=== PATIENT | male | born 2000 | race Two or more races ===

== ENCOUNTER 2019-02-05 07:41 | Emergency (ER) | payer SELFPAY ==
[~2019-02-05] VITALS: Ht 185.4 cm; Wt 117.9 kg
[~2019-02-05 07:41] MED LIST: ALBU2.5V8 INH
[2019-02-05 07:52] VITALS: BP 148/94
[2019-02-05] MEDS ORDERED: IV NORMAL SALINE 1,000ML 1,000 ML IV SCH (08:08)
--- NOTE | 2019-02-05 08:12 | PHYS DOC ---
Past History Past Medical History: No Pertinent History Past Surgical History: Other Additional Past Surgical Histo: PREVIOUS HAND AND FOOT SURGERY Smoking: Non-smoker Alcohol Use: None Drug Use: None Adult General Chief Complaint Chief Complaint: ABDOMINAL PAIN HPI HPI Patient is a 18-year-old male presents with left sided upper and lower abdominal pain. This started 3-4 days ago. There is nausea with this, no vomiting. No diarrhea. No blood in the stool. No fevers. No recent travel. No sick family contacts. No relief with acetaminophen. Slightly worse with movement. The discomfort has been waxing and waning. Pain is moderate in intensity. There is no radiation into the back or to the groin.[] Review of Systems Review of Systems Constitutional: Denies fever or chills [] Eyes: Denies change in visual acuity, redness, or eye pain [] HENT: Denies nasal congestion or sore throat [] Respiratory: Denies cough or shortness of breath [] Cardiovascular: No chest pain or palpitations[] GI: See history of present illness[] : Denies dysuria or hematuria [] Musculoskeletal: Denies back pain or joint pain [] Integument: Denies rash or skin lesions [] Neurologic: Denies headache, focal weakness or sensory changes [] Endocrine: Denies polyuria or polydipsia [] All other systems were reviewed and found to be within normal limits, except as documented in this note. Allergies Allergies Allergies Coded Allergies Type Severity Reaction Last Updated Verified No Known Drug Allergies 12/18/13 No Physical Exam Physical Exam Constitutional: Well developed, well nourished, no acute distress, non-toxic appearance. [] HENT: Normocephalic, atraumatic, bilateral external ears normal, oropharynx moist, no oral exudates, nose normal. [] Eyes: PERRLA, EOMI, conjunctiva normal, no discharge. [] Neck: Normal range of motion, no tenderness, supple, no stridor. [] Cardiovascular:Heart rate regular rhythm, no murmur [] Lungs & Thorax: Bilateral breath sounds clear to auscultation [] Abdomen: Bowel sounds normal, soft, left-sided abdominal tenderness, both upper and lower quadrants, no rebound, no guarding, no rigidity, no masses, no pulsatile masses. [] Skin: Warm, dry, no erythema, no rash. [] Back: No tenderness, no CVA tenderness. [] Extremities: No tenderness, no cyanosis, no clubbing, ROM intact, no edema. [] Neurologic: Alert and oriented X 3, normal motor function, normal sensory function, no focal deficits noted. [] Psychologic: Affect normal, judgement normal, mood normal. [] Current Patient Data Vital Signs Vital Signs Date Time Temp Pulse Resp B/P (MAP) Pulse Ox O2 Delivery O2 Flow Rate FiO2 02/05/19 07:52 98.4 99 Room Air EKG EKG [] Radiology/Procedures Radiology/Procedures PROCEDURE: CT ABD PELV W/ IV CONTRST ONLY Examination: CT of the abdomen pelvis with IV contrast HISTORY: History of left-sided abdominal pain COMPARISON: None available TECHNIQUE: Axial CT images of the abdomen pelvis were performed with IV contrast. Coronal and sagittal reformats are performed. Exposure: One or more of the following individualized dose reduction techniques were utilized for this examination: 1. Automated exposure control 2. Adjustment of the mA and/or kV according to patient size 3. Use of iterative reconstruction technique FINDINGS: Minimal 3 mm nodule identified in the right lung base. No evidence of pleural effusion or pneumothorax. No evidence of free air identified in the abdomen. Mild decreased attenuation noted identified in the liver likely hepatic steatosis. The visualized spleen, adrenals grossly appears unremarkable. The gallbladder is mildly distended. The stomach is mildly distended. The visualized pancreas grossly appears unremarkable. The small bowel is nondilated. The appendix is normal. There is mild thickened appearance of the wall of the descending colon, sigmoid colon with minimal questionable surrounding fat stranding could be nondistention or mild colitis. Urinary bladder is mildly distended. The bilateral kidneys enhance symmetrically. The caliber of the aorta grossly appears unremarkable. No evidence of lytic bony destructive lesion. IMPRESSION: 1. Mild thickened appearance of the wall of the descending colon and sigmoid colon with minimal surrounding fat stranding could be due to nondistention or mild colitis. 2. Mild hepatic steatosis. 3. Questionable 3 mm nodule right lung base.[] Course & Med Decision Making Course & Med Decision Making Pertinent Labs and Imaging studies reviewed. (See chart for details) ED course: Patient arrived, was placed in bed, and tolerated exam well. He was transported to and from [place] without any complications. He had IV access established, was given IV fluids as well as pain medicine and antiemetics which improved his nausea and partially improved his pain. After the return of the laboratory and imaging findings, these were discussed with the patient who voiced understanding. His initial dose of antibiotics was administered. He was discharged in improved condition with all questions answered. Medical decision making: Patient appears to have colitis. There is no family history of ulcerative colitis so we'll treat this as an infectious etiology. No evidence of oral intake intolerance. No evidence of significant electrolyte abnormality, pancreatitis, obstruction, appendicitis, or perforation.[] Dragon Disclaimer Dragon Disclaimer This electronic medical record was generated, in whole or in part, using a voice recognition dictation system. Departure Departure: Impression: Primary Impression: Colitis Disposition: HOME, SELF-CARE Condition: IMPROVED Referrals: [facility] (PCP) Patient Instructions: Colitis Additional Instructions: Follow-up with your regular doctor in 2 days. If you do not have a regular doctor list of local clinics will be provided for you. Take the medication as prescribed. Return to the ER if worsening pain, unable to tolerate liquids, or any other concerns. Scripts Metronidazole (METRONIDAZOLE) 500 Mg Tablet 500 MG PO QID for colitis for 10 Days, #40 TAB Prov: MARIANO SIMS DO 02/05/19 Tramadol Hcl (TRAMADOL HCL) 50 Mg Tablet 50 MG PO PRN Q6HRS PRN for PAIN, #20 TAB Prov: MARIANO SIMS DO 02/05/19 Metoclopramide Hcl (REGLAN) 10 Mg Tablet 10 MG PO QID for nausea and vomiting, #30 TAB Prov: MARIANO SIMS DO 02/05/19 Meloxicam (MELOXICAM) 7.5 Mg Tablet 7.5 MG PO DAILY for PAIN, #20 TAB Prov: MARIANO SIMS DO 02/05/19 Sulfamethoxazole/Trimethoprim (BACTRIM DS TABLET) 1 Each Tablet 1 TAB PO BID for colitis, #20 TAB Prov: MARIANO SIMS DO 02/05/19 MARIANO SIMS DO Feb 05, 2019 08:12
[2019-02-05] MEDS ORDERED: ONDANSETRON PF 4 MG/2 ML VIAL. IV ONE (08:30)
[2019-02-05] MEDS ORDERED: IOHEXOL 300 MG/ML 75 ML VIAL. IV ONE (08:30)
[2019-02-05] MEDS ORDERED: KETOROLAC 30 MG/ML VIAL. IV ONE (08:30)
[2019-02-05 08:34] LABS: BASO % 0 % (0-3); EOS % 1 % (0-3); HEMATOCRIT 48.4 % (39.0-53.0); HEMOGLOBIN 16.4 g/dL (13.0-17.5); LYMPH # 1.7 x10^3/uL (1.0-4.8); LYMPH % 32 % (24-48); MEAN CORPUSCULAR HEMOGLOBIN 29 pg (25-35); MEAN CORPUSCULAR HGB CONC 34 g/dL (31-37); MEAN CORPUSCULAR VOLUME 87 fL (79-100); MONO # 0.5 x10^3/uL (0.0-1.1); MONO % 8 % (0-9); NEUT # 3.2 x10^3uL (1.8-7.7); NEUT % 59 % (31-73); PLATELET COUNT 295 x10^3/uL (140-400); RED BLOOD COUNT 5.57 x10^6/uL (4.30-5.70); WHITE BLOOD COUNT 5.5 x10^3/uL (4.0-11.0)
[2019-02-05 08:56] LABS: ALBUMIN 4.3 g/dL (3.4-5.0); ALBUMIN/GLOBULIN RATIO 1.2 (1.0-1.7); CALCIUM 9.6 mg/dL (8.5-10.1); CREATININE 1.1 mg/dL (0.7-1.3); GFR 86.2; POTASSIUM 3.9 mmol/L (3.5-5.1); TOTAL PROTEIN 7.8 g/dL (6.4-8.2)
--- NOTE | 2019-02-05 08:59 | RAD ---
Examination: CT of the abdomen pelvis with IV contrast HISTORY: History of left-sided abdominal pain COMPARISON: None available TECHNIQUE: Axial CT images of the abdomen pelvis were performed with IV contrast. Coronal and sagittal reformats are performed. Exposure: One or more of the following individualized dose reduction techniques were utilized for this examination: 1. Automated exposure control 2. Adjustment of the mA and/or kV according to patient size 3. Use of iterative reconstruction technique FINDINGS: Minimal 3 mm nodule identified in the right lung base. No evidence of pleural effusion or pneumothorax. No evidence of free air identified in the abdomen. Mild decreased attenuation noted identified in the liver likely hepatic steatosis. The visualized spleen, adrenals grossly appears unremarkable. The gallbladder is mildly distended. The stomach is mildly distended. The visualized pancreas grossly appears unremarkable. The small bowel is nondilated. The appendix is normal. There is mild thickened appearance of the wall of the descending colon, sigmoid colon with minimal questionable surrounding fat stranding could be nondistention or mild colitis. Urinary bladder is mildly distended. The bilateral kidneys enhance symmetrically. The caliber of the aorta grossly appears unremarkable. No evidence of lytic bony destructive lesion. IMPRESSION: 1. Mild thickened appearance of the wall of the descending colon and sigmoid colon with minimal surrounding fat stranding could be due to nondistention or mild colitis. 2. Mild hepatic steatosis. 3. Questionable 3 mm nodule right lung base. Electronically signed by: Omar Sher MD (02/05/2019 8:56 AM) [place] [id number]
[2019-02-05] MEDS ORDERED: METR-34 PO (09:39)
[2019-02-05] MEDS ORDERED: METO10TA81 PO (09:39)
[2019-02-05] MEDS ORDERED: MELO7.5T29 PO (09:39)
[2019-02-05] MEDS ORDERED: TRAM50TA PO (09:39)
[2019-02-05] MEDS ORDERED: SULF1TAB24 PO (09:39)
[2019-02-05] MEDS ORDERED: SMZ/TMP 800/160MG TABLET. PO ONE (09:45)
[2019-02-05] MEDS ORDERED: metroNIDAZOLE 500 MG TABLET PO ONE (09:45)
[2019-02-05] MEDS ORDERED: traMADol 50 MG TABLET PO ONE (09:45)
[2019-02-05 09:52] LABS: AMORPHOUS SEDIMENT,UR PRESENT /HPF; BACTERIA,URINE 0 /HPF (0-FEW); BILIRUBIN,URINE NEG (NEG); CLARITY,URINE CLOUDY; COLOR,URINE YELLOW; GLUCOSE,URINE NEG (NEG); NITRITE,URINE NEG (NEG); RBC,URINE RARE /HPF (0-2); SQUAMOUS EPITHELIAL CELL,UR OCC /LPF; UROBILINOGEN,URINE 0.2 mg/dL (0.2 mg/dL); WBC,URINE RARE /HPF (0-4)
[2019-02-09] MEDS ORDERED: ACET500T68 PO (16:25)
[2019-02-09] MEDS ORDERED: LEVO500T59 PO (16:25)
[2019-02-09] MEDS ORDERED: LACT1CAP19 PO (16:25)
== END 2019-02-05 10:05 | disposition home or self-care (01) ==
LOC: ER 07:41
DX: K52.9 Noninfective gastroenteritis and colitis, unspecified (principal)
CPT/HCPCS: 36415; 74177; 80053; 81001; 83690; 85025; 96361; 96374; 96375; 99285; J1885; J2405; Q9967; J7030

== ENCOUNTER 2019-02-07 22:11 | Inpatient (IN) | payer OTHER ==
[~2019-02-07] VITALS: Ht 188 cm; Wt 117.5 kg
[~2019-02-07 22:11] MED LIST changes: +MELO7.5T29 PO; +METO10TA81 PO; +METR-34 PO; +SULF1TAB24 PO; +TRAM50TA PO
--- NOTE | 2019-02-07 22:14 | ED.ADGEN ---
Past History Past Medical History: No Pertinent History, GERD Past Medical History Colitis Past Surgical History: Other Additional Past Surgical Histo: PREVIOUS HAND AND FOOT SURGERY Smoking: Non-smoker Alcohol Use: None Drug Use: None Adult General Chief Complaint Chief Complaint ".. I ve been having pain since Sat.. and I was here Thrusday.. and got a CT.. they sent me out on Bactrim and Flagyl.. and some Tramadol.. but I am still nauseated.. and hurting..." HPI HPI Patient is a 18 year old male who presents with above hx and complaints abdomen pain. Reviewed prior CT and it showed colitis. Patient has been somewhat noncompliant with a clear fluid diet. No recent travel. No specific ill contacts. No history immunosuppression. There is some family history of colitis with alcohol. Patient has not had a previous episodes of inflammatory bowel disease. Patient tonight is extremely nauseated any with ice chips he vomits and has increased abdomen pain. Patient normally follows with Dr. Chen. Review of Systems Review of Systems Constitutional: Denies fever or chills [] Eyes: Denies change in visual acuity, redness, or eye pain [] HENT: Denies nasal congestion or sore throat [] Respiratory: Denies cough or shortness of breath [] Cardiovascular: No additional information not addressed in HPI [] GI: Complaints of generalized abdominal pain, nausea, vomiting, . Denies bloody stools or diarrhea [] : Denies dysuria or hematuria [] Musculoskeletal: Denies back pain or joint pain [] Integument: Denies rash or skin lesions [] Neurologic: Denies headache, focal weakness or sensory changes [] Endocrine: Denies polyuria or polydipsia [] All other systems were reviewed and found to be within normal limits, except as documented in this note. Family History Family History An uncle with colitis Current Medications Current Medications Current Medications Medications (Trade) Dose Ordered Sig/Evette Start Time Stop Time Status Last Admin Dose Admin Acetaminophen (Tylenol) 650 mg PRN Q4HRS PRN 02/08/19 01:30 02/09/19 01:29 Famotidine (Pepcid Vial) 20 mg 1X ONCE 02/07/19 22:30 02/07/19 22:35 DC 02/07/19 23:02 20 MG Ketorolac Tromethamine (Toradol 15mg Vial) 15 mg PRN TID PRN 02/08/19 01:30 02/13/19 01:29 Ketorolac Tromethamine (Toradol 30mg Vial) 30 mg 1X ONCE 02/07/19 22:30 02/07/19 22:35 DC 02/07/19 23:02 30 MG Lactated Ringer's 1,000 ml @ 75 mls/hr 1X ONCE 02/08/19 01:15 02/08/19 14:34 02/08/19 01:11 75 MLS/HR Magnesium Hydroxide (Milk Of Magnesia) 2,400 mg 1X ONCE 02/07/19 22:30 02/07/19 22:35 DC 02/07/19 23:03 2,400 MG Methylprednisolone Sodium Succinate (SOLU-Medrol 125MG VIAL) 125 mg 1X ONCE 02/08/19 01:00 02/08/19 01:44 DC 02/08/19 01:05 125 MG Morphine Sulfate (Morphine 10mg Syringe) 10 mg 1X ONCE 02/08/19 01:00 02/08/19 01:44 DC 02/08/19 01:05 10 MG Ondansetron HCl (Zofran) 4 mg PRN Q4HRS PRN 02/08/19 01:30 02/09/19 01:29 Allergies Allergies Allergies Coded Allergies Type Severity Reaction Last Updated Verified No Known Drug Allergies 12/18/13 No Physical Exam Physical Exam Constitutional: Well developed, well nourished, moderate acute distress, non- toxic appearance. [] HENT: Normocephalic, atraumatic, bilateral external ears normal, oropharynx dry, no oral exudates, nose normal. [] Eyes: PERRLA, EOMI, conjunctiva normal, no discharge. [] Neck: Normal range of motion, no tenderness, supple, no stridor. [] Cardiovascular:Heart rate regular rhythm, no murmur [] Lungs & Thorax: Bilateral breath sounds clear to auscultation [] Abdomen: Bowel sounds normal, soft, generalized tenderness, no masses, no pulsatile masses. [] No focal rebound areas Skin: Warm, dry, no erythema, no rash. [] Back: No tenderness, no CVA tenderness. [] Extremities: No tenderness, no cyanosis, no clubbing, ROM intact, no edema. [] No psoas sign Neurologic: Alert and oriented X 3, normal motor function, normal sensory function, no focal deficits noted. [] Psychologic: Affect very anxious, judgement normal, mood normal. [] Current Patient Data Vital Signs Vital Signs Date Time Temp Pulse Resp B/P (MAP) Pulse Ox O2 Delivery O2 Flow Rate FiO2 02/08/19 01:02 84 20 143/74 (97) 100 Room Air 02/07/19 22:37 98.4 Lab Results Laboratory Tests Test 02/07/19 23:05 02/07/19 23:15 Urine Collection Type Void Urine Color Yellow Urine Clarity Clear Urine pH 7.0 Urine Specific Adkins 1.015 Urine Protein Neg (NEG-TRACE) Urine Glucose (UA) Neg mg/dL (NEG) Urine Ketones (Stick) Neg mg/dL (NEG) Urine Blood Neg (NEG) Urine Nitrite Neg (NEG) Urine Bilirubin Neg (NEG) Urine Urobilinogen Dipstick 0.2 mg/dL (0.2 mg/dL) Urine Leukocyte Esterase Trace (NEG) Urine RBC Rare /HPF (0-2) Urine WBC 1-4 /HPF (0-4) Urine Squamous Epithelial Cells Occ /LPF Urine Bacteria Few /HPF (0-FEW) Urine Opiates Screen Neg (NEG) Urine Methadone Screen Neg (NEG) Urine Barbiturates Neg (NEG) Urine Phencyclidine Screen Neg (NEG) Urine Amphetamine/Methamphetamine Neg (NEG) Urine Benzodiazepines Screen Neg (NEG) Urine Cocaine Screen Neg (NEG) Urine Cannabinoids Screen Neg (NEG) Urine Ethyl Alcohol Neg (NEG) White Blood Count 6.3 x10^3/uL (4.0-11.0) Red Blood Count 5.53 x10^6/uL (4.30-5.70) Hemoglobin 16.4 g/dL (13.0-17.5) Hematocrit 48.1 % (39.0-53.0) Mean Corpuscular Volume 87 fL (79-100) Mean Corpuscular Hemoglobin 30 pg (25-35) Mean Corpuscular Hemoglobin Concent 34 g/dL (31-37) Red Cell Distribution Width 12.9 % (11.5-14.5) Platelet Count 312 x10^3/uL (140-400) Neutrophils (%) (Auto) 72 % (31-73) Lymphocytes (%) (Auto) 20 % (24-48) L Monocytes (%) (Auto) 8 % (0-9) Eosinophils (%) (Auto) 1 % (0-3) Basophils (%) (Auto) 0 % (0-3) Neutrophils # (Auto) 4.5 x10^3uL (1.8-7.7) Lymphocytes # (Auto) 1.3 x10^3/uL (1.0-4.8) Monocytes # (Auto) 0.5 x10^3/uL (0.0-1.1) Eosinophils # (Auto) 0.0 x10^3/uL (0.0-0.7) Basophils # (Auto) 0.0 x10^3/uL (0.0-0.2) Prothrombin Time 10.5 SEC (9.4-11.4) Prothrombin Time INR 1.0 (0.9-1.1) Activated Partial Thromboplast Time 27 SEC (23-33) Sodium Level 138 mmol/L (136-145) Potassium Level 4.1 mmol/L (3.5-5.1) Chloride Level 100 mmol/L (98-107) Carbon Dioxide Level 28 mmol/L (21-32) Anion Gap 10 (6-14) Blood Urea Nitrogen 7 mg/dL (8-26) L Creatinine 1.1 mg/dL (0.7-1.3) Estimated GFR (Cockcroft-Gault) 86.2 Glucose Level 96 mg/dL (70-99) Calcium Level 9.7 mg/dL (8.5-10.1) Total Bilirubin 1.0 mg/dL (0.2-1.0) Direct Bilirubin 0.2 mg/dL (0.0-0.2) Aspartate Amino Transferase (AST) 36 U/L (15-37) Alanine Aminotransferase (ALT) 54 U/L (16-63) Alkaline Phosphatase 100 U/L (46-116) Troponin I Quantitative < 0.017 ng/mL (0-0.055) Total Protein 7.8 g/dL (6.4-8.2) Albumin 4.6 g/dL (3.4-5.0) Amylase Level 43 U/L (25-115) Lipase 72 U/L (73-393) L EKG EKG [] Radiology/Procedures Radiology/Procedures [][address] [id number] IMAGING REPORT Signed PATIENT: SHEFALI ALLEN ACCOUNT: [id number] : 2000 LOCATION: ER AGE: 18 SEX: M EXAM STATUS: REG ER ORD. PHYSICIAN: ADELA WHITTEN MD REASON: abdominal pain, nausea x 3 days PROCEDURE: ACUTE ABDOMEN SERIES ACUTE ABDOMEN SERIES History: Abdominal pain, nausea for 3 days Comparison: June 17, 2010 chest exam Findings: Single view of the chest, 2 AP upright views of the abdomen, 2 supine AP views of the abdomen are submitted. There is no infiltrate, pleural fluid, pneumothorax, free air. No significant bowel dilatation is identified. However there is possible degree of descending colonic wall thickening. Impression: 1. There is appearance of possible descending colonic wall thickening as could be seen with colitis, overall nonobstructive bowel gas pattern. Electronically signed by: Maru Ortega MD (02/07/2019 11:42 PM) [facility] [id number] DICTATED AND SIGNED BY: MARU ORTEGA MD DATE: 02/07/19 [id number] CC: FIDELINA CHEN MD; ADELA WHITTEN MD ~ Course & Med Decision Making Course & Med Decision Making Pertinent Labs and Imaging studies reviewed. (See chart for details) Arrangements made for discharge, however the Patient unable to tolerate ice chips. Pt. admitted Dr. Chen. [] Final Impression Final Impression 1. Abdomen pain 2. Colitis[] 3. Nausea and Vomiting 4. Dehydration Dragon Disclaimer Dragon Disclaimer This electronic medical record was generated, in whole or in part, using a voice recognition dictation system. Dragon Disclaimer This chart was dictated in whole or in part using Voice Recognition software in a busy, high-work load, and often noisy Emergency Department environment. It may contain unintended and wholly unrecognized errors or omissions. Dragon Disclaimer This chart was dictated in whole or in part using Voice Recognition software in a busy, high-work load, and often noisy Emergency Department environment. It may contain unintended and wholly unrecognized errors or omissions. ADELA WHITTEN MD Feb 07, 2019 22:14
[2019-02-07] MEDS ORDERED: KETOROLAC 30 MG/ML VIAL. IV ONE (22:30)
[2019-02-07] MEDS ORDERED: IV RINGERS SOLUTION,LACTATED 1,000 ML IV SCH (22:30)
[2019-02-07] MEDS ORDERED: MAGNESIUM HYDROXIDE 2,400 MG/30 ML ORAL.SUSP. PO ONE (22:30)
[2019-02-07] MEDS ORDERED: FAMOTIDINE 20 MG/2 ML VIAL IVP ONE (22:30)
[2019-02-07] MEDS ORDERED: ONDANSETRON PF 4 MG/2 ML VIAL. IV ONE (22:30)
[2019-02-07 23:39] LABS: BASO % 0 % (0-3); EOS % 1 % (0-3); HEMATOCRIT 48.1 % (39.0-53.0); HEMOGLOBIN 16.4 g/dL (13.0-17.5); LYMPH # 1.3 x10^3/uL (1.0-4.8); LYMPH % 20 % (24-48); MEAN CORPUSCULAR HEMOGLOBIN 30 pg (25-35); MEAN CORPUSCULAR HGB CONC 34 g/dL (31-37); MEAN CORPUSCULAR VOLUME 87 fL (79-100); MONO # 0.5 x10^3/uL (0.0-1.1); MONO % 8 % (0-9); NEUT # 4.5 x10^3uL (1.8-7.7); NEUT % 72 % (31-73); PLATELET COUNT 312 x10^3/uL (140-400); RED BLOOD COUNT 5.53 x10^6/uL (4.30-5.70); RED CELL DISTRIBUTION WIDTH 12.9 % (11.5-14.5); WHITE BLOOD COUNT 6.3 x10^3/uL (4.0-11.0)
[2019-02-07 23:45] LABS: BARBITURATES NEG (NEG); BENZODIAZEPINES NEG (NEG); CANNABINOIDS NEG (NEG); COCAINE NEG (NEG); METHADONE NEG (NEG); OPIATES NEG (NEG); PHENCYCLIDINE NEG (NEG)
--- NOTE | 2019-02-07 23:46 | RAD ---
ACUTE ABDOMEN SERIES History: Abdominal pain, nausea for 3 days Comparison: June 17, 2010 chest exam Findings: Single view of the chest, 2 AP upright views of the abdomen, 2 supine AP views of the abdomen are submitted. There is no infiltrate, pleural fluid, pneumothorax, free air. No significant bowel dilatation is identified. However there is possible degree of descending colonic wall thickening. Impression: 1. There is appearance of possible descending colonic wall thickening as could be seen with colitis, overall nonobstructive bowel gas pattern. Electronically signed by: Von Ortega MD (02/07/2019 11:42 PM) [facility]
[2019-02-07 23:50] LABS: BILIRUBIN,URINE NEG (NEG); CLARITY,URINE CLEAR; COLOR,URINE YELLOW; GLUCOSE,URINE NEG (NEG); NITRITE,URINE NEG (NEG); RBC,URINE RARE /HPF (0-2); UROBILINOGEN,URINE 0.2 mg/dL (0.2 mg/dL)
[2019-02-07 23:51] LABS: ALBUMIN 4.6 g/dL (3.4-5.0); CALCIUM 9.7 mg/dL (8.5-10.1); CREATININE 1.1 mg/dL (0.7-1.3); DIRECT BILIRUBIN 0.2 mg/dL (0.0-0.2); GFR 86.2; POTASSIUM 4.1 mmol/L (3.5-5.1); TOTAL PROTEIN 7.8 g/dL (6.4-8.2)
[2019-02-07 23:51] LABS: BACTERIA,URINE FEW /HPF (0-FEW); SQUAMOUS EPITHELIAL CELL,UR OCC /LPF
[2019-02-07 23:53] LABS: AMPHETAMINE/METHAMPHETAMINE NEG (NEG)
[2019-02-08] MEDS ORDERED: ONDA8TAB9 PO (01:00)
[2019-02-08] MEDS ORDERED: methylPREDNISolone SOD SUCC PF 125 MG/2 ML VIAL. IV ONE (01:00)
[2019-02-08] MEDS ORDERED: MORPHINE SULFATE 10 MG/ML SYRINGE. SQ ONE (01:00)
[2019-02-08] MEDS ORDERED: IV RINGERS SOLUTION,LACTATED 1,000 ML IV ONE (01:15)
[2019-02-08] MEDS ORDERED: KETOROLAC 15 MG/ML VIAL. IV PRN (01:30)
[2019-02-08] MEDS ORDERED: ACETAMINOPHEN 325 MG TABLET PO PRN (01:30)
[2019-02-08 03:05] VITALS: BP 147/81
[2019-02-08 06:09] VITALS: BP 143/89
[2019-02-08] MEDS: IV RINGERS SOLUTION,LACTATED 1,000 ML IV SCH ×5 (06:45→20:45)
[2019-02-08] MEDS: ONDANSETRON PF 4 MG/2 ML VIAL. IV PRN ×2 (07:13→11:23)
[2019-02-08] MEDS: levoFLOXacin 500 MG TABLET PO SCH (08:33)
[2019-02-08] MEDS ORDERED: methylPREDNISolone SOD SUCC PF 40 MG/ML VIAL. IV SCH (09:00)
[2019-02-08 11:00] VITALS: BP 131/84
[2019-02-08] MEDS ORDERED: metroNIDAZOLE 500 MG TABLET PO SCH (14:00)
[2019-02-08] MEDS ORDERED: ONDANSETRON ODT 4 MG TAB.RAPDIS PO PRN (14:00)
[2019-02-08] MEDS ORDERED: ONDANSETRON PF 4 MG/2 ML VIAL. IV PRN (15:00)
[2019-02-08 15:34] VITALS: BP 129/79
[2019-02-08] MEDS ORDERED: ACETAMINOPHEN 500 MG TABLET PO PRN (16:00)
--- NOTE | 2019-02-08 19:17 | HP ---
ADMIT DATE: 02/08/2019 HISTORY OF PRESENT ILLNESS: A 18-year-old male came in through the Emergency Room, apparently was in the ER a few days ago with abdominal pain, came back in because the pain was getting worse despite being on some antibiotics. The patient was found to have on his CAT scan some colitis. He has never had that before. He has been on antibiotics, but does not seem to be working. He became increasingly nauseated and as a result of that, the patient was admitted to the hospital for further evaluation. PAST MEDICAL HISTORY: That of GERD. Otherwise, he has had surgery on hand and foot, otherwise unremarkable. FAMILY HISTORY: Possible for some type of colonic problems, otherwise unremarkable. ALLERGIES: The patient has no known allergies. MEDICATIONS: Basically the ones from outpatient including the trimethoprim ____, metronidazole, albuterol inhaler, meloxicam, tramadol, Zofran and Reglan. SOCIAL HISTORY: The patient denies smoking, alcohol or drug use. REVIEW OF SYSTEMS: He does have a headache. He does have nausea and vomiting. Denies any chest pain, shortness of breath. Does have diffuse abdominal pain. No problems urinating. Neurological: The patient was alert and oriented x 3. PHYSICAL EXAMINATION: VITAL SIGNS: Blood pressure 130/80, respiratory rate 18, pulse 102, afebrile. HEENT: The patient's head was atraumatic, normocephalic. Eyes: PERRLA without jaundice. Mouth and throat were normal. LUNGS: Clear. CARDIOVASCULAR: Regular sinus rhythm. ABDOMEN: Soft, diffuse tenderness in that left mid to left lower quadrant area. Some guarding. No rebounding or guarding. Positive bowel sounds, no hepatosplenomegaly. EXTREMITIES: No clubbing, cyanosis, or edema. NEUROLOGIC: The patient was alert and oriented x 3. LABORATORY DATA: The patient's white count 6, hemoglobin 16 and 48. Electrolytes were all basically within normal limits. Lipase was low at 72. Coags unremarkable. Toxicology negative. Urine was unremarkable as well. IMPRESSION: Colitis of the colon, severe abdominal pain with nausea, vomiting, dehydration. PLAN: The patient continue on IV antibiotics of Flagyl and Levaquin, also put him on budesonide and make further evaluation on his colitis; if it continues, may need to be transferred. FIDELINA CHEN MD DR: DREW/andre JOB#: [id number] / [id number]
[2019-02-08 19:18] VITALS: BP 126/76
[2019-02-08] MEDS ORDERED: PROCHLORPERAZINE 10 MG/2 ML VIAL. IV PRN (19:30)
[2019-02-08] MEDS: BUDESONIDE 3 MG CAP.ER.24H. PO SCH ×2 (20:28→20:45)
[2019-02-08] MEDS: LACTOBACILLUS RHAMNOSUS GG 1 CAPSULE. PO SCH ×2 (20:28→20:45)
[2019-02-08] MEDS ORDERED: PROMETHAZINE 25 MG TABLET. PO PRN (20:45)
[2019-02-08 22:13] VITALS: BP 129/77
[2019-02-09] MEDS: IV RINGERS SOLUTION,LACTATED 1,000 ML IV SCH (05:17)
[2019-02-09 05:25] VITALS: BP 114/74
[2019-02-09 05:59] LABS: BASO % 0 % (0-3); EOS % 0 % (0-3); HEMOGLOBIN 14.7 g/dL (13.0-17.5); LYMPH # 1.4 x10^3/uL (1.0-4.8); LYMPH % 16 % (24-48); MEAN CORPUSCULAR HEMOGLOBIN 30 pg (25-35); MEAN CORPUSCULAR HGB CONC 34 g/dL (31-37); MEAN CORPUSCULAR VOLUME 87 fL (79-100); MONO # 0.8 x10^3/uL (0.0-1.1); MONO % 9 % (0-9); NEUT # 6.7 x10^3uL (1.8-7.7); NEUT % 75 % (31-73); PLATELET COUNT 289 x10^3/uL (140-400); RED BLOOD COUNT 4.97 x10^6/uL (4.30-5.70); RED CELL DISTRIBUTION WIDTH 13.2 % (11.5-14.5); WHITE BLOOD COUNT 8.9 x10^3/uL (4.0-11.0)
[2019-02-09 06:05] LABS: CALCIUM 8.9 mg/dL (8.5-10.1); CREATININE 1.1 mg/dL (0.7-1.3); GFR 86.2; POTASSIUM 4.1 mmol/L (3.5-5.1)
[2019-02-09] MEDS: BUDESONIDE 3 MG CAP.ER.24H. PO SCH (08:26)
[2019-02-09] MEDS: levoFLOXacin 500 MG TABLET PO SCH (08:27)
[2019-02-09] MEDS: LACTOBACILLUS RHAMNOSUS GG 1 CAPSULE. PO SCH (08:27)
[2019-02-09 11:08] VITALS: BP 129/77
[2019-02-09 15:26] VITALS: BP 126/83
[2019-02-09] MEDS ORDERED: ACET500T68 PO (16:25)
[2019-02-09] MEDS ORDERED: LEVO500T59 PO (16:25)
[2019-02-09] MEDS ORDERED: LACT1CAP19 PO (16:25)
--- NOTE | 2019-02-09 21:35 | PN ---
DATE: SUBJECTIVE: The patient is a pleasant 18-year-old male in with colitis. He is doing somewhat better. He does have quite tenderness. His pulses come down from 102 down to 75. He is still not able to eat very much of anything he is taking. Actually, he is on a clear liquid diet and need to continue to be monitored carefully. OBJECTIVE: VITAL SIGNS: Otherwise blood pressure 114/74, respiratory rate 20, pulse 75, afebrile. GENERAL: The patient is alert and oriented. LUNGS: Clear. CARDIOVASCULAR: Stable. ABDOMEN: Soft, diffuse tenderness in left lower quadrant. He is making good progress with the IV antibiotic therapy and p.o. steroids. We will continue to monitor him on that and hopefully ready for discharge in the morning, but right now, he is too weak. He is unable to get up and move around very much on his own, but I will encourage ambulation for the young man. IMPRESSION: Colitis, abdominal pain, dehydration, nausea, vomiting. PLAN: Continue on the Flagyl, Levaquin and steroids for now. FIDELINA CHEN MD DR: DREW/ander JOB#: [id number] / [id number]
== END 2019-02-09 17:10 | disposition home or self-care (01) | DRG 392 ==
LOC: ER 22:11 → 1 SOUTH 02-08 01:30
PROVIDERS: ADMIT Family Medicine; ATTEND Family Medicine
DX: K52.9 Noninfective gastroenteritis and colitis, unspecified (principal); E86.0 Dehydration; K21.9 Gastro-esophageal reflux disease without esophagitis; Z91.19 Patient's noncompliance with other medical treatment and regimen
CPT/HCPCS: 36415; 74022; 80048; 80076; 80307; 81001; 82150; 83690; 84484; 85025; 85610; 85730; 87086; 87493; 96361; 96374; 96375; J0780; J1885; J2270; J2405; J2920; J2930; J3490; J7120; Q0162; 99285-25

== ENCOUNTER 2019-11-24 07:50 | Emergency (ER) | payer OTHER ==
[~2019-11-24] VITALS: Ht 188 cm; Wt 122.0 kg
[~2019-11-24 07:50] MED LIST changes: +ACET500T68 PO; +LACT1CAP19 PO; +LEVO500T59 PO; +ONDA8TAB9 PO
[2019-11-24] MEDS ORDERED: IV NORMAL SALINE 1,000ML 1,000 ML IV SCH (08:12)
[2019-11-24] MEDS ORDERED: LIDO:MAALOX 1:1 20 ML SINGLE DOSE. PO ONE (08:15)
--- NOTE | 2019-11-24 08:18 | PHYS DOC ---
Past History Past Medical History: No Pertinent History, GERD Past Surgical History: Other Additional Past Surgical Histo: PREVIOUS HAND AND FOOT SURGERY Smoking: Non-smoker Alcohol Use: None Drug Use: None General Adult HPI: HPI: Patient is a 19-year-old male who presents to the emergency department for evaluation. He states he has had some generalized abdominal pain, primarily in his upper abdomen, for the past week. He has had diarrhea as well for the past week, may have seen some blood in his stool today. He also reports some nausea and vomiting over the past few days as well. He states he has had 1 prior episode of colitis, but it does not feel similar to this episode. He thinks he might have a family history of inflammatory bowel disease but is not sure. He has not had any fevers or chills. There are no alleviating or exacerbating factors to his symptoms. He does have a GI appointment set up for 10 days from today. Review of Systems: Review of Systems: Constitutional: Denies fever or chills Eyes: Denies change in visual acuity HENT: Denies nasal congestion or sore throat Respiratory: Denies cough or shortness of breath Cardiovascular: Denies chest pain or edema GI: As per HPI : Denies dysuria Musculoskeletal: Denies back pain or joint pain Integument: Denies rash Neurologic: Denies headache, focal weakness or sensory changes Endocrine: Denies polyuria or polydipsia Lymphatic: Denies swollen glands Psychiatric: Denies depression or anxiety Heart Score: Risk Factors: Risk Factors: DM, Current or recent (<one month) smoker, HTN, HLP, family history of CAD, obesity. Risk Scores: Score 0 - 3: 2.5% MACE over next 6 weeks - Discharge Home Score 4 - 6: 20.3% MACE over next 6 weeks - Admit for Clinical Observation Score 7 - 10: 72.7% MACE over next 6 weeks - Early Invasive Strategies Allergies: Allergies: Allergies Coded Allergies Type Severity Reaction Last Updated Verified No Known Drug Allergies 12/18/13 No Physical Exam: PE: PHYSICAL EXAM: CONSTITUTIONAL: Well developed, well nourished HEAD: normocephalic, atraumatic EENT: PERRL, EOMI. Conjunctivae normal color, sclerae non-icteric; moist mucous membranes. NECK: Supple, non-tender; no meningismus. LUNGS: Lungs CTA, breathing even and unlabored. Normal air movement. HEART: Regular rate and rhythm, no murmur CHEST: No deformity; non-tender ABDOMEN: The abdomen is soft, bowel sounds are normal, there is mild diffuse tenderness to palpation to the abdomen without focal tenderness, rebound, or guarding, no masses or bruits. EXTREM: Normal ROM; no deformity, no calf tenderness. Normal pulses palpable in all extremities. There is no pedal edema. SKIN: No rash; no diaphoresis NEURO: Alert; normal speech and cognition; CN's grossly intact; strength grossly intact without focal deficit. BACK: No CVA TTP. RECTAL EXAM: There are no perianal abnormalities noted, no gross blood on exam, Hemoccult specimen sent to lab. Current Patient Data: Labs: Laboratory Tests Test 11/24/19 08:14 11/24/19 08:29 Urine Collection Type Unknown Urine Color Yellow Urine Clarity Clear Urine pH 5.5 Urine Specific [place] >=1.030 Urine Protein Neg Urine Glucose (UA) Neg mg/dL Urine Ketones (Stick) 15 mg/dL Urine Blood Neg Urine Nitrite Neg Urine Bilirubin Neg Urine Urobilinogen Dipstick 0.2 mg/dL Urine Leukocyte Esterase Neg Urine RBC 1-2 /HPF Urine WBC 1-4 /HPF Urine Squamous Epithelial Cells Occ /LPF Urine Bacteria 0 /HPF Urine Mucus Marked /LPF Stool Occult Blood Negative White Blood Count 4.9 x10^3/uL Red Blood Count 5.30 x10^6/uL Hemoglobin 15.7 g/dL Hematocrit 45.5 % Mean Corpuscular Volume 86 fL Mean Corpuscular Hemoglobin 30 pg Mean Corpuscular Hemoglobin Concent 35 g/dL Red Cell Distribution Width 13.1 % Platelet Count 275 x10^3/uL Neutrophils (%) (Auto) 70 % Lymphocytes (%) (Auto) 22 % Monocytes (%) (Auto) 7 % Eosinophils (%) (Auto) 1 % Basophils (%) (Auto) 0 % Neutrophils # (Auto) 3.4 x10^3uL Lymphocytes # (Auto) 1.1 x10^3/uL Monocytes # (Auto) 0.3 x10^3/uL Eosinophils # (Auto) 0.0 x10^3/uL Basophils # (Auto) 0.0 x10^3/uL Sodium Level 137 mmol/L Potassium Level 3.7 mmol/L Chloride Level 102 mmol/L Carbon Dioxide Level 27 mmol/L Anion Gap 8 Blood Urea Nitrogen 11 mg/dL Creatinine 1.0 mg/dL Estimated GFR (Cockcroft-Gault) 95.3 BUN/Creatinine Ratio 11 Glucose Level 102 mg/dL Calcium Level 9.1 mg/dL Total Bilirubin 1.1 mg/dL Aspartate Amino Transf (AST/SGOT) 25 U/L Alanine Aminotransferase (ALT/SGPT) 46 U/L Alkaline Phosphatase 92 U/L C-Reactive Protein 2.8 mg/L Total Protein 7.2 g/dL Albumin 4.0 g/dL Albumin/Globulin Ratio 1.3 Lipase 62 U/L Current Medications Medications (Trade) Dose Ordered Sig/Evette Route PRN Reason Start Time Stop Time Status Last Admin Dose Admin Multi-Ingredient Mouthwash/Gargle (Gi Cocktail) 20 ml 1X ONCE PO 11/24/19 08:15 11/24/19 08:26 DC 11/24/19 09:36 Sodium Chloride 1,000 ml @ 1,000 mls/hr Q1H IV 11/24/19 08:12 11/24/19 09:11 DC 11/24/19 08:30 Iohexol (Omnipaque 300 Mg/ml) 75 ml 1X ONCE IV 11/24/19 08:30 11/24/19 08:31 DC 11/24/19 08:38 EKG: EKG: [] Radiology/Procedures: Radiology/Procedures: PROCEDURE: CT ABD PELV W/ IV CONTRST ONLY CT ABD PELV W/ IV CONTRST ONLY History: Reason: MID/UPPER ABDOMINAL PAIN, NAUSEA, VOMITING, DIARRHEA X 1 WEEK / Spl. Instructions: / History: Technique: After the administration of intravenous contrast, CT imaging was performed of the abdomen and pelvis. Multiplanar images are reviewed. Exposure: One or more of the following individualized dose reduction techniques were utilized for this examination: 1. Automated exposure control 2. Adjustment of the mA and/or kV according to patient size 3. Use of iterative reconstruction technique. Comparison: February 05, 2019 Findings: Lower chest: No consolidation or pleural effusion. Abdomen and pelvis: Mild hepatic steatosis. The spleen, adrenal glands, pancreas and gallbladder are unremarkable. No biliary ductal dilatation. Normal appearance of the kidneys. No hydronephrosis. Decompressed urinary bladder. Normal appendix. Nondistended transverse colon and descending colon. No evidence of bowel obstruction. Multiple small mesenteric lymph nodes most prominent in the right lower quadrant. No ascites. Bones: No pathologic osseous lesions. Impression: 1. No acute abdominal or pelvic pathology. 2. Multiple small mesenteric lymph nodes most prominent in the right lower quadrant, likely reactive, unchanged. 3. Mild hepatic steatosis.[] Course & Med Decision Making: Course & Med Decision Making Pertinent Labs and Imaging studies reviewed. (See chart for details) [] 9:50 AM: Patient remains stable. I discussed test results, the need for close follow-up, and return precautions. Dragon Disclaimer: Dragon Disclaimer: This electronic medical record was generated, in whole or in part, using a voice recognition dictation system. Departure Departure: Impression: Primary Impression: Abdominal pain Disposition: 01 HOME/RESIDENCE PRIOR TO ADM Condition: STABLE Referrals: FIDELINA CHEN MD (PCP) Patient Instructions: Abdominal Pain Additional Instructions: Follow-up with GI next week as scheduled. Scripts Dicyclomine Hcl (DICYCLOMINE HCL) 20 Mg Tablet 1 TAB PO QID PRN for Stomach Cramping, #20 TAB Prov: HARLEY ESPINOZA MD 11/24/19 Justification of Admission: Justification of Admission: Justification of Admission Dx: N/A HARLEY ESPINOZA MD Nov 24, 2019 08:18
[2019-11-24] MEDS ORDERED: IOHEXOL 300 MG/ML 75 ML VIAL. IV ONE (08:30)
[2019-11-24 08:49] LABS: BASO % 0 % (0-3); EOS % 1 % (0-3); HEMATOCRIT 45.5 % (39.0-53.0); HEMOGLOBIN 15.7 g/dL (13.0-17.5); LYMPH # 1.1 x10^3/uL (1.0-4.8); LYMPH % 22 % (24-48); MEAN CORPUSCULAR HEMOGLOBIN 30 pg (25-35); MEAN CORPUSCULAR HGB CONC 35 g/dL (31-37); MEAN CORPUSCULAR VOLUME 86 fL (79-100); MONO # 0.3 x10^3/uL (0.0-1.1); MONO % 7 % (0-9); NEUT # 3.4 x10^3uL (1.8-7.7); NEUT % 70 % (31-73); PLATELET COUNT 275 x10^3/uL (140-400); RED CELL DISTRIBUTION WIDTH 13.1 % (11.5-14.5); WHITE BLOOD COUNT 4.9 x10^3/uL (4.0-11.0)
[2019-11-24 08:52] VITALS: BP 152/86
[2019-11-24 08:58] LABS: CALCIUM 9.1 mg/dL (8.5-10.1); GFR 95.3; POTASSIUM 3.7 mmol/L (3.5-5.1)
[2019-11-24 09:06] LABS: ALBUMIN/GLOBULIN RATIO 1.3 (1.0-1.7); C REACTIVE PROTEIN 2.8 mg/L (0-3.3); TOTAL BILIRUBIN 1.1 mg/dL (0.2-1.0); TOTAL PROTEIN 7.2 g/dL (6.4-8.2)
--- NOTE | 2019-11-24 09:08 | RAD ---
CT ABD PELV W/ IV CONTRST ONLY History: Reason: MID/UPPER ABDOMINAL PAIN, NAUSEA, VOMITING, DIARRHEA X 1 WEEK / Spl. Instructions: / History: Technique: After the administration of intravenous contrast, CT imaging was performed of the abdomen and pelvis. Multiplanar images are reviewed. Exposure: One or more of the following individualized dose reduction techniques were utilized for this examination: 1. Automated exposure control 2. Adjustment of the mA and/or kV according to patient size 3. Use of iterative reconstruction technique. Comparison: February 05, 2019 Findings: Lower chest: No consolidation or pleural effusion. Abdomen and pelvis: Mild hepatic steatosis. The spleen, adrenal glands, pancreas and gallbladder are unremarkable. No biliary ductal dilatation. Normal appearance of the kidneys. No hydronephrosis. Decompressed urinary bladder. Normal appendix. Nondistended transverse colon and descending colon. No evidence of bowel obstruction. Multiple small mesenteric lymph nodes most prominent in the right lower quadrant. No ascites. Bones: No pathologic osseous lesions. Impression: 1. No acute abdominal or pelvic pathology. 2. Multiple small mesenteric lymph nodes most prominent in the right lower quadrant, likely reactive, unchanged. 3. Mild hepatic steatosis. Electronically signed by: Osmel Segal DO (11/24/2019 9:05 AM) [id number]
[2019-11-24 09:12] LABS: BACTERIA,URINE 0 /HPF (0-FEW); BILIRUBIN,URINE NEG (NEG); CLARITY,URINE CLEAR; COLOR,URINE YELLOW; GLUCOSE,URINE NEG (NEG); NITRITE,URINE NEG (NEG); UROBILINOGEN,URINE 0.2 mg/dL (0.2 mg/dL)
[2019-11-24 09:13] LABS: SQUAMOUS EPITHELIAL CELL,UR OCC /LPF
[2019-11-24 09:19] LABS: FECAL OB PT NEGATIVE (NEG)
[2019-11-24] MEDS ORDERED: DICY20TA3 PO (09:51)
== END 2019-11-24 10:00 | disposition home or self-care (01) ==
LOC: ER 07:50
DX: R10.84 Generalized abdominal pain (principal); R19.7 Diarrhea, unspecified; R11.2 Nausea with vomiting, unspecified; K21.9 Gastro-esophageal reflux disease without esophagitis
CPT/HCPCS: 36415; 74177; 80053; 81001; 82274; 83690; 85025; 86140; 96360; 99285; J7030; Q9967

== ENCOUNTER 2021-01-14 21:48 | Emergency (ER) | payer OTHER ==
[~2021-01-14] VITALS: Ht 188 cm; Wt 115.5 kg
[~2021-01-14 21:48] MED LIST changes: +DICY20TA3 PO
[2021-01-14] MEDS ORDERED: ONDANSETRON 4MG ODT 4TABLET STARTPACK. PO ONE (22:30)
--- NOTE | 2021-01-14 22:45 | PHYS DOC ---
Past History Past Medical History: No Pertinent History Additional Past Medical Histor: colitis Past Surgical History: Other Additional Past Surgical Histo: PREVIOUS HAND AND FOOT SURGERY--due to webbing of rt hand and foot Smoking: Non-smoker Alcohol Use: None Drug Use: None Adult General Chief Complaint Chief Complaint: NAUSEA/VOMITING/DIARRHEA HPI HPI Patient is a 20-year-old male, otherwise healthy presents with a day of nausea vomiting and diarrhea. States that his family at home had similar symptoms over the last week. Denies any fevers, chest pain, shortness of breath, abdominal pain, dysuria, hematuria. States he is still able to drink a little bit however his appetite has decreased. Review of Systems Review of Systems Review of systems otherwise unremarkable except noted in HPI Current Medications Current Medications Current Medications Medications (Trade) Dose Ordered Sig/Evette Start Time Stop Time Status Last Admin Dose Admin Ondansetron HCl (Starter Pack - Zofran Odt) 1 startpack 1X ONCE 01/14/21 22:30 01/14/21 22:31 DC 01/14/21 22:15 1 STARTPACK Allergies Allergies Allergies Coded Allergies Type Severity Reaction Last Updated Verified No Known Drug Allergies 11/24/19 No Physical Exam Physical Exam Constitutional: Well developed, well nourished, no acute distress, non-toxic appearance. [] HENT: Normocephalic, atraumatic, Eyes: conjunctiva normal, no discharge. [] Cardiovascular:Heart rate regular rhythm, no murmur [] Lungs & Thorax: Bilateral breath sounds clear to auscultation [] Abdomen: soft, no tenderness, no masses, no pulsatile masses. [] Skin: Warm, dry, no erythema, no rash. [] Extremities: No tenderness, ROM intact, no edema. [] Neurologic: Alert and oriented X 3, no focal deficits noted. [] Psychologic: Affect normal, judgement normal, mood normal. [] Current Patient Data Vital Signs Vital Signs Date Time Temp Pulse Resp B/P (MAP) Pulse Ox O2 Delivery O2 Flow Rate FiO2 01/14/21 22:00 99.4 103 20 132/97 (109) 98 Room Air EKG EKG [] Radiology/Procedures Radiology/Procedures [] Heart Score C/O Chest Pain: No Risk Factors: Risk Factors: DM, Current or recent (<one month) smoker, HTN, HLP, family history of CAD, obesity. Risk Scores: Risk Factors: DM, Current or recent (<one month) smoker, HTN, HLP, family history of CAD, obesity. Course & Med Decision Making Course & Med Decision Making Patient is a 20-year-old male who presents with a chief complaint of a day of nausea, vomiting and diarrhea that he most likely was exposed to his family Vital signs not concerning. Physical exam noted above. Given oral Zofran. On reassessment patient able to drink without issue. Discussed all findings with patient. Discussed symptomatic treatment at home. Advised to follow-up with primary care physician on Saturday to set up a follow- up. Gave strict return precautions to the ED. Gave nausea medicine for home. Patient grateful, verbalized understanding and agreed with plan of discharge. [] Dragon Disclaimer Dragon Disclaimer This electronic medical record was generated, in whole or in part, using a voice recognition dictation system. Departure Departure: Impression: Primary Impression: Nausea vomiting and diarrhea Disposition: HOME / SELF CARE / HOMELESS Condition: IMPROVED Referrals: FIDELINA CHEN MD (PCP) Patient Instructions: Diarrhea, Diet for Diarrhea, Adult, Nausea and Vomiting Additional Instructions: Patient coming to the emergency department tonight in allowing us to take care of you. Please read the attached information carefully to go back over things we discussed. Over the next couple of days please take your nausea medicine s cheduled as prescribed and drink plenty of fluids. As well as normal fluid intake after every episode of diarrhea please drink 8 to 12 ounces of liquid as well. If you are able to eat food then you can drink water but if you are unable to take an whole food please drink things like Gatorade and/or Pedialyte and try to eat things with salt such as chicken soup and crackers. Please follow-up Saturday with your primary care physician to set up a follow-up visit. Please come back to the ED with new or concerning symptoms as discussed. IMAN HERRING MD Jan 14, 2021 22:45
[2021-01-14 23:05] VITALS: BP 132/69
== END 2021-01-14 23:07 | disposition home or self-care (01) ==
LOC: ER 21:48
DX: R11.2 Nausea with vomiting, unspecified (principal); R19.7 Diarrhea, unspecified
CPT/HCPCS: 99283; Q0162

== ENCOUNTER 2021-01-15 18:47 | Emergency (ER) | payer OTHER ==
[~2021-01-15] VITALS: Ht 188 cm; Wt 115.5 kg
[2021-01-15 19:01] VITALS: BP 158/91
--- NOTE | 2021-01-15 19:04 | PHYS DOC ---
Past History Past Medical History: No Pertinent History Additional Past Medical Histor: colitis Past Surgical History: Other Additional Past Surgical Histo: PREVIOUS HAND AND FOOT SURGERY--due to webbing of rt hand and foot Smoking: Non-smoker Alcohol Use: None Drug Use: None Adult General Chief Complaint Chief Complaint: NAUSEA/VOMITING/DIARRHEA HPI HPI Patient is a 20-year-old male otherwise healthy who presents with chief complaint of diarrhea and 2 episodes of nausea and vomiting today. States he was in the emergency department last night with a similar symptoms. States his nausea was doing better and given nausea medicine and was able to drink. States that today he has vomited twice, nonbloody nonbilious. States he is still able to drink. States he is having watery diarrhea with no blood in it. Denies fevers, chest pain, shortness of breath, abdominal pain, dysuria, hematuria or blood in stool. Review of Systems Review of Systems Review of systems otherwise unremarkable except noted in HPI Allergies Allergies Allergies Coded Allergies Type Severity Reaction Last Updated Verified No Known Drug Allergies 11/24/19 No Physical Exam Physical Exam Constitutional: Well developed, well nourished, no acute distress, non-toxic appearance. [] HENT: Normocephalic, atraumatic, bilateral external ears normal, oropharynx moist, no oral exudates, nose normal. [] Eyes: conjunctiva normal, no discharge. [] Neck: Normal range of motion, no tenderness, supple, no stridor. [] Cardiovascular:Heart rate regular rhythm, no murmur [] Lungs & Thorax: Bilateral breath sounds clear to auscultation [] Abdomen: Bowel sounds normal, soft, no tenderness, no masses, no pulsatile masses. [] Skin: Warm, dry, no erythema, no rash. [] Extremities: No tenderness, ROM intact, no edema. [] Neurologic: Alert and oriented X 3, no focal deficits noted. [] Psychologic: Affect normal, judgement normal, mood normal. [] EKG EKG [] Radiology/Procedures Radiology/Procedures [] Heart Score C/O Chest Pain: No Risk Factors: Risk Factors: DM, Current or recent (<one month) smoker, HTN, HLP, family history of CAD, obesity. Risk Scores: Risk Factors: DM, Current or recent (<one month) smoker, HTN, HLP, family history of CAD, obesity. Course & Med Decision Making Course & Med Decision Making Patient is 20-year-old male who presents with nausea, vomiting and diarrhea Vital signs notable for mild tachycardia and hypertension. Physical exam noted above. Given antiemetics. Patient states that he is still having diarrhea, but his nausea and vomiting has improved significantly and is only had 2 episodes today and is able to drink plenty of Gatorade and fluids. Discussed all findings with patient. Gave symptomatic recommendations. Covid pending. Advised to follow-up in the morning with primary care physician. Gave return precautions to the ED. Patient grateful, verbalized understanding agree with plan of discharge. Dragon Disclaimer Dragon Disclaimer This electronic medical record was generated, in whole or in part, using a voice recognition dictation system. Departure Departure: Impression: Primary Impression: Nausea & vomiting Additional Impression: Diarrhea Disposition: HOME / SELF CARE / HOMELESS Condition: GOOD Referrals: FIDELINA CHEN MD (PCP) Patient Instructions: Diet for Diarrhea, Adult, Nausea and Vomiting Additional Instructions: Thanks for coming into the emergency department tonight and allowing us to take care of you. Please read all the attached information carefully go back over what we discussed. Please use your nausea medicine as we discussed. Please be sure to stay hydrated. Please follow-up in the morning with your primary care physician. Please come back to the ED with new or concerning symptoms as discussed. Please be sure to read all the Covid education to go back over what we discussed as well. You have been tested for or diagnosed with COVID-19. It is an infection caused by a new type of coronavirus. COVID-19 will cause cold-like or mild flu symptoms in most. It can cause more severe symptoms like problems breathing in some. There is no treatment for COVID-19. The body will clear the infection over time. Self-care will help to ease discomfort. Steps to Take: Self-Care Rest as needed. Healthy habits may help you feel better. Steps include: Choose healthy foods including fruits and vegetables. Drink water throughout the day. Get plenty of sleep each night. If you smoke, try to quit. It may ease breathing. Avoid alcohol. Keep Others Healthy The virus can spread to others. Droplets are released every time you sneeze or cough. The droplets can get into the mouth, nose, or eyes of people near you and lead to infection. To lower the chances of spreading COVID-19 to others: Stay at home until your doctor has said it is safe to leave. If you tested positive this will mean staying isolated until both of the following are true: At least 7 days have passed since the start of illness. You are free of fever for at least 72 hours without the use of medicine. During this time: - Avoid public areas, events, or transportation. Do not return to work or school until your doctor has said it is safe to do so. - Call ahead if you need to go to a medical center. Let them know you may have COVID-19. It will help them guide you where to go. They may also ask you to wear a facemask when you come to the office. - If you call for emergency medical services, let them know you may have COVID- 19. While at home: - Try to avoid close contact with others. Stay about 6 feet away. - If possible, spend most of your time in a separate room from others. - Use a face mask if you will be in close contact with others such as sharing a room or vehicle. - Have someone wipe down common surfaces in the home. Use household manager rn every day on areas like doorknobs, counters, or sinks. - Cough or sneeze into a tissue. Throw the tissue away right after use. If a tissue is not available, cough or sneeze into your elbow. - Wash your hands often. Wash them after sneezing or coughing. Use soap and water and wash for at least 20 seconds. Alcohol based hand quill cleaner can be used if soap and water is not available. - Do not prepare food for others. Avoid sharing personal items like forks, spoons, or toothbrushes. - Avoid close contact with pets while you are sick. There is no evidence of the virus passing to pets. This is a safety step until more is known about this virus. Isolation can be frustrating. Social interaction can help. Keep in touch with friends and family through phone and tech options. You can still interact with others in your home, just keep a safe distance of about 6 feet. Follow-up: Your doctors office will check in with you to see if there are any changes in your health. You may be asked to keep track of symptoms to share with them. They will also let you know when you are clear to be in public again. Problems to Look Out For: Contact your doctor if your recovery is not going as you expect. Get emergency care if you have problems such as: - Trouble breathing - Nonstop chest pain or pressure - Changes in awareness, confusion, or problems waking - Lips or face have bluish color - Worsening of symptoms If you think you have an emergency, call for emergency medical services right away. As taken from [facility] Health Problem Qualifiers IMAN HERRING MD Jan 15, 2021 19:04
[2021-01-15] MEDS ORDERED: METOCLOPRAMIDE HCL 10 MG/2 ML VIAL. IM ONE (19:15)
[2021-01-15] MEDS ORDERED: PROMETHAZINE 25 MG SUPP.RECT. PR ONE (19:15)
[2021-01-15] MEDS ORDERED: ONDANSETRON 4MG ODT 4TABLET STARTPACK. PO ONE (19:30)
== END 2021-01-15 19:35 | disposition home or self-care (01) ==
LOC: ER 18:47
DX: R19.7 Diarrhea, unspecified (principal); R11.2 Nausea with vomiting, unspecified; Z20.822 Contact with and (suspected) exposure to COVID-19
CPT/HCPCS: 96372; 99283; C9803; J2765; Q0162; U0003

== ENCOUNTER 2021-04-21 14:09 | Emergency (ER) | payer OTHER ==
[~2021-04-21] VITALS: Ht 185.4 cm; Wt 115.4 kg
[~2021-04-21 14:09] MED LIST changes: +DICY20TA PO; -DICY20TA3 PO
--- NOTE | 2021-04-21 14:52 | PHYS DOC ---
Past History Past Medical History: No Pertinent History Additional Past Medical Histor: colitis Past Surgical History: Other Additional Past Surgical Histo: PREVIOUS HAND AND FOOT SURGERY--due to webbing of rt hand and foot Smoking: Non-smoker Alcohol Use: None Drug Use: None Adult General Chief Complaint Chief Complaint: HEADACHE HPI HPI Patient is a 20-year-old male presenting to the ED with headache after hitting his head at work. States that he bent over to pick something up a few days ago and hit the right side of his head on a bolt while he was in the process of standing up. He thought nothing of it at the time, but has continued to exp erience symptoms. Pain is localized to the right side of his head and does not radiate. Reports nausea, no vomiting. Took Zofran at home, indicates little success in reducing his nausea. Also reports photophobia, phonophobia. Had previous bout during this time of bilateral lower extremity weakness which has recently resolved. Denies previous head trauma, concussions. Denies fevers, chills, chest pain, neck pain. Immunizations up-to-date at this time. Review of Systems Review of Systems Fourteen body systems of review of systems have been reviewed. See HPI for pertinent positives and negative responses, other myrick all other systems are negative, non-pertinent or non-contributory Current Medications Current Medications Denies any medications Allergies Allergies Denies any allergies Allergies Coded Allergies Type Severity Reaction Last Updated Verified No Known Drug Allergies 11/24/19 No Physical Exam Physical Exam Constitutional: Well developed, well nourished, no acute distress, non-toxic appearance. HENT: Normocephalic, small bump on right-lateral skull, no erythema or drainage, bilateral external ears normal, oropharynx moist, no oral exudates, nose normal. Eyes: PERRLA, EOMI, conjunctiva normal, no discharge. Neck: Normal range of motion, no tenderness, supple, no stridor. Cardiovascular: Heart rate regular, sinus rhythm, no murmurs rubs or gallops Lungs & Thorax: Bilateral breath sounds clear to auscultation Abdomen: Bowel sounds normal, soft, no tenderness, no masses, no pulsatile masses. Nonsurgical abdomen, no peritoneal signs Skin: Warm, dry, no erythema, no rash. Back: No tenderness, no CVA tenderness. Extremities: No tenderness, no cyanosis, no clubbing, ROM intact, no edema. Neurologic: Alert and oriented X 3, cranial nerves II through XII intact, normal motor & sensory function, no focal deficits noted. Psychologic: Affect normal, judgement normal, mood normal. Current Patient Data Vital Signs Vital Signs Date Time Temp Pulse Resp B/P (MAP) Pulse Ox O2 Delivery O2 Flow Rate FiO2 04/21/21 14:53 98.8 84 18 153/77 (102) 100 Room Air Vital Signs Date Time Temp Pulse Resp B/P (MAP) Pulse Ox O2 Delivery O2 Flow Rate FiO2 04/21/21 14:53 98.8 84 18 153/77 (102) 100 Room Air EKG EKG [] Radiology/Procedures Radiology/Procedures [] Heart Score C/O Chest Pain: No Risk Factors: Risk Factors: DM, Current or recent (<one month) smoker, HTN, HLP, family history of CAD, obesity. Risk Scores: Risk Factors: DM, Current or recent (<one month) smoker, HTN, HLP, family history of CAD, obesity. Course & Med Decision Making Course & Med Decision Making ABCs unremarkable, HPI physical exam nonconcerning for any emergent or surgical issues I discussed most likely diagnosis of postconcussive syndrome. Patient symptoms sequela of recent injury while at work. I discussed utility of CT hemorrhaging despite low likelihood of intracranial hemorrhage or other life-threatening abnormality, patient deferred As such, continued supportive care practices advised. Patient requesting new prescription for Zofran which she has been using as needed at home for nausea, I feel this is reasonable and new prescription sent Close PCP follow-up discussed with appropriate return precautions prior to outpatient follow-up Herlinda Disclaimer Dragyonatan Disclaimer This electronic medical record was generated, in whole or in part, using a voice recognition dictation system. Departure Departure: Impression: Primary Impression: Head injury Additional Impression: Post concussion syndrome Disposition: HOME / SELF CARE / HOMELESS Condition: STABLE Referrals: FIDELINA CHEN MD (PCP) Patient Instructions: Concussion-SportsMed, Head Injury, Adult Additional Instructions: You were seen for a headache after recent head injury. You most likely have a concussion and are suffering from sequelae of this. You should avoid any further head trauma. If you continue to have symptoms you need to be evaluated by a primary care physician for clearance back to work and potential outpatient consultation with a sports medicine or headache specialist. Please continue supportive care practices at home. As discussed, joint decision made to defer any head imaging today given overall well-appearing vital signs and comprehensive physical examination findings. You should return to the ED if you develop worsening pain, numbness, tingling, weakness, vomiting, vision change, or any other new or concerning symptoms. Scripts Ondansetron Hcl (ZOFRAN) 4 Mg Tablet 1 TAB PO Q6HRS for NAUSEA, #20 TAB Prov: KENJI MELVIN DO 04/21/21 Problem Qualifiers KENJI MELVNI DO Apr 21, 2021 14:52
[2021-04-21 14:53] VITALS: BP 153/77
[2021-04-21] MEDS ORDERED: ONDA4TAB7 PO (15:18)
== END 2021-04-21 15:22 | disposition home or self-care (01) ==
LOC: ER 14:09
DX: S09.8XXA Other specified injuries of head, initial encounter (principal); F07.81 Postconcussional syndrome; W22.8XXA Striking against or struck by other objects, initial encounter; Y93.89 Activity, other specified; Y92.89 Other specified places as the place of occurrence of the external cause; Y99.8 Other external cause status
CPT/HCPCS: 99283-25